=== PATIENT | male | born 1995 | race African-American/Black ===

== ENCOUNTER 2017-10-02 23:40 | Emergency (ER) | payer BC ==
--- NOTE | 2017-10-03 00:58 | ED ---
Throat Pain/Nasal Congestion - HPI Summary HPI Summary: 22M presents with sore throat today. He admits to a headache. He is a type 1 DM and his sugars have been normal. He denies any nausea or vomiting. He denies any diarrhea. He denies any fever. He admits to cough and sinus congestion. He admits to dizziness. He denies any chest pain or SOb. He denies any abdominal pain. He has been able to drink as normal but appetite has been decreased. He has not taken anything for pain. there is mold in his house. - History of Current Complaint Chief Complaint: EDThroatPain Time Seen by Provider: 10/03/17 00:26 - Allergies/Home Medications Allergies/Adverse Reactions: Allergies Allergy/AdvReac Type Severity Reaction Status Date / Time No Known Allergies Allergy Verified 10/02/17 23:58 PMH/Surg Hx/FS Hx/Imm Hx Endocrine/Hematology History: Reports: Hx Diabetes Cardiovascular History: Denies: Hx Hypertension - Immunization History Date of Tetanus Vaccine: utd Date of Influenza Vaccine: utd Infectious Disease History: No Infectious Disease History: Denies: Traveled Outside the [place] in Last 30 Days - Family History Known Family History: Positive: Diabetes - Social History Alcohol Use: None Substance Use Type: Reports: None Smoking Status (MU): Never Smoked Tobacco Review of Systems Negative: Fever Positive: Sore Throat, Nasal Discharge Negative: Chest Pain Positive: Cough. Negative: Shortness Of Breath All Other Systems Reviewed And Are Negative: Yes Physical Exam Triage Information Reviewed: Yes Vital Signs On Initial Exam: Initial Vitals Temp Pulse Resp BP Pulse Ox 98.8 F 78 18 115/67 100 10/02/17 23:56 10/02/17 23:56 10/02/17 23:56 10/02/17 23:56 10/02/17 23:56 Vital Signs Reviewed: Yes Appearance: Positive: Well-Appearing Skin: Positive: Warm, Dry Head/Face: Positive: Normal Head/Face Inspection Eyes: Positive: Normal, EOMI, JOLYNN, Conjunctiva Clear ENT: Positive: Normal ENT inspection, Pharyngeal erythema, TMs normal, Uvula midline, Other - soft palate symmetric. Negative: Tonsillar swelling, Tonsillar exudate, Trismus, Muffled voice Neck: Positive: Supple, Nontender, No Lymphadenopathy Respiratory/Lung Sounds: Positive: Clear to Auscultation, Breath Sounds Present Cardiovascular: Positive: Normal, RRR Abdomen Description: Positive: Nontender, Soft Bowel Sounds: Positive: Present Musculoskeletal: Positive: Normal Neurological: Positive: Normal Psychiatric: Positive: Normal - [place]am Coma Scale Coma Scale Total: 15 Diagnostics - Vital Signs Vital Signs Temp Pulse Resp BP Pulse Ox 10/02/17 23:56 98.8 F 78 18 115/67 100 - Laboratory Lab Statement: Any lab studies that have been ordered have been reviewed, and results considered in the medical decision making process. EENT Course/Dx - Course Course Of Treatment: 22M presents with sore throat today. He admits to a headache. He is a type 1 DM and his sugars have been normal. He denies any nausea or vomiting. He denies any diarrhea. He denies any fever. He admits to cough and sinus congestion. He admits to dizziness. He denies any chest pain or SOb. He denies any abdominal pain. He has been able to drink as normal but appetite has been decreased. He has not taken anything for pain. there is mold in his house. on exam lungs CTA. pharynx red, soft palate symmetric, uvula midline. flu, mono, and strep neg. will treat with magic mouth wash for pain. patient understand and agrees with plan. - Differential Diagnoses Differential Diagnoses: Pharyngitis, Tonsilitis, URI/Bronchitis - Diagnoses Provider Diagnoses: Upper respiratory infection Discharge - Discharge Plan Condition: Good Disposition: HOME Patient Education Materials: Upper Respiratory Infection (ED) Referrals: Marquez Cortez MD [Primary Care Provider] - Additional Instructions: Magic mouthwash 5ml swish and spit can use 4x a day Take Tylenol or ibuprofen for pain every 6 hours Use saline spray in nose as much as needed Use humidifier in room or can use warm water in bowls Can gargle salt water Can use cough drops or products such as cloraseptic spray Follow up with primary within 5 days Return to ED if develop fever does not respond to Tylenol or ibuprofen, inability to swallow, or difficulty breathing or any new or worsening symptoms
[2017-10-03 01:54] VITALS: BP 106/49
== END 2017-10-03 01:55 | disposition home or self-care (01) ==
LOC: ED 23:40
DX: J06.9 Acute upper respiratory infection, unspecified (principal)
CPT/HCPCS: 36415; 86308; 87502; 87651; 99282

== ENCOUNTER 2018-12-14 14:18 | Inpatient (IN) | payer BC, OTHER ==
[2018-12-14] MEDS ORDERED: Nicotine Inhaler* 10 MG AMP INH PRN (14:21)
--- NOTE | 2018-12-14 14:31 | ED ---
Psychiatric Complaint - HPI Summary HPI Summary: This patient is a 23 year old M presenting to ED from [facility] with a chief complaint of SI and depression since all of last month. Has no plan currently. He has had prior SI attempts with thoughts to jump off a building. The patient rates the pain 0/10 in severity. Symptoms aggravated by nothing. Symptoms alleviated by nothing. Patient reports insomnia as well. Patient denies CP and SOB. Patient is not on medications and has been eating and drinking okay. Patient has not been admitted here before. - History Of Current Complaint Chief Complaint: EDMentalHealth Time Seen by Provider: 12/14/18 14:18 Hx Obtained From: Patient Onset/Duration: Sudden Onset, Lasting Weeks, Still Present Timing: Constant Severity Currently: None Character: Depressed Aggravating Factor(s): Nothing Alleviating Factor(s): Nothing Related History: Positive For: Prior Psychiatric Issues Has Suicidal: Reports: Thoughts. Denies: With A Plan Has Homicidal: Denies: Thoughts - Allergies/Home Medications Allergies/Adverse Reactions: Allergies Allergy/AdvReac Type Severity Reaction Status Date / Time No Known Allergies Allergy Verified 10/02/17 23:58 Home Medications: Home Medications NK [No Home Medications Reported] 12/14/18 [History Confirmed 12/14/18] PMH/Surg Hx/FS Hx/Imm Hx Endocrine/Hematology History: Reports: Hx Diabetes Cardiovascular History: Denies: Hx Hypertension Psychiatric History: Reports: Hx Depression, Hx Suicide Attempt - Immunization History Date of Tetanus Vaccine: utd Date of Influenza Vaccine: utd Infectious Disease History: No Infectious Disease History: Denies: Traveled Outside the [place] in Last 30 Days - Family History Known Family History: Positive: Diabetes - Social History Alcohol Use: None Substance Use Type: Reports: None Smoking Status (MU): Never Smoked Tobacco Review of Systems Negative: Fever, Chills Negative: Erythema Negative: Sore Throat Negative: Chest Pain Negative: Shortness Of Breath, Cough Negative: Abdominal Pain, Vomiting, Nausea Negative: dysuria, hematuria Negative: Myalgia, Edema Negative: Rash Neurological: Other - denies dizziness Positive: Depressed, Other - SI with no plan All Other Systems Reviewed And Are Negative: Yes Physical Exam - Summary Physical Exam Summary: Constitutional: Well-developed, Well-nourished, Alert. (-) Distressed Skin: Warm, Dry HENT: Normocephalic; Atraumatic Eyes: Conjunctiva normal Neck: Musculoskeletal ROM normal neck. (-) JVD, (-) Stridor, (-) Tracheal deviation Cardio: Rhythm regular, rate normal, Heart sounds normal; Intact distal pulses; The pedal pulses are 2+ and symmetric. Radial pulses are 2+ and symmetric. (-) Murmur Pulmonary/Chest wall: Effort normal. (-) Respiratory distress, (-) Wheezes, (-) Rales Abd: Soft, (-) epigastric tenderness, (-) Distension, (-) Guarding, (-) Rebound Musculoskeletal: (-) Edema Lymph: (-) Cervical adenopathy Neuro: Alert, Oriented x3 Psych: Mood and affect Normal Triage Information Reviewed: Yes Vital Signs On Initial Exam: Initial Vitals Temp Pulse Resp BP Pulse Ox 98.2 F 78 16 148/89 99 12/14/18 14:19 12/14/18 14:19 12/14/18 14:19 12/14/18 14:19 12/14/18 14:19 Vital Signs Reviewed: Yes Diagnostics - Vital Signs Vital Signs Temp Pulse Resp BP Pulse Ox 12/14/18 14:19 98.2 F 78 16 148/89 99 - Laboratory Result Diagrams: 12/14/18 15:01 12/14/18 15:01 Lab Statement: Any lab studies that have been ordered have been reviewed, and results considered in the medical decision making process. Course/Dx - Course Assessment/Plan: This patient is a 23 year old M presenting to ED from [facility] with a chief complaint of SI and depression since all of last month. Patient is clear for MHE at 1420. In the ED course, the patient was given a nicotine inhaler. MHE done by Dr. Villafuerte. This patient will be signed out to Dr. Eaton upon shift change, pending transfer to another psychiatric facility with dx of depressive disorder. - Differential Dx/Clinical Impression Differential Diagnosis/HQI/PQRI: Positive: Other - depressive disorder Provider Diagnosis: Depressive disorder Discharge - Sign-Out/Discharge Documenting (check all that apply): Sign-Out Patient - transfer to another psychiatric facility Signing out patient TO: Allen Eaton Patient Received Moderate/Deep Sedation with Procedure: No - Discharge Plan Condition: Stable Disposition: PSYCHIATRIC FACILITY-OTHER Referrals: Marquez Cortez MD [Medical Doctor] - - Attestation Statements Document Initiated by Scribe: Yes Documenting Scribe: Arsh Shipley Provider For Whom Scribe is Documenting (Include Credential): Desean Russ MD Scribe Attestation: IArsh, scribed for Desean Russ MD on 12/14/18 at 2150. Status of Scribe Document: Ready
[2018-12-14 14:59] LABS: Urine Appearance Clear; Urine Bilirubin Negative (Negative); Urine Blood Negative (Negative); Urine Color Yellow; Urine Glucose 3+(>=500 mg/dL) (Negative); Urine Ketones Negative (Negative); Urine Nitrite Negative (Negative); Urine Protein Negative (Negative); Urine Specific Gravity 1.023 (1.010-1.030); Urine Urobilinogen Negative (Negative)
[2018-12-14 15:07] LABS: ABS Basophils 0 10^3/ul (0-0.2); ABS Eosinophils 0 10^3/ul (0-0.6); ABS Lymphocytes 1.6 10^3/ul (1.0-4.8); ABS Monocytes 0.7 10^3/ul (0-0.8); ABS Nucleated RBC 0 10^3/ul; Eosinophil % 0.5 %; Hematocrit 41 % (36-46); Hemoglobin 13.8 g/dL (14.0-18.0); Lymphocyte % 30.3 %; Mean Corpuscular HGB Conc 33 g/dL (31-36); Mean Corpuscular Hemoglobin 29 pg (27-31); Mean Corpuscular Volume 88 fL (80-94); Mean Platelet Volume 7.2 fL (7.4-10.4); Nucleated Red Blood Cells % 0.1; Platelet Count 239 10^3/uL (150-450); Red Blood Count 4.71 10^6 /uL (4.18-5.48); Red Cell Distribution Width 13 % (10.5-15); White Blood Count 5.4 10^3/uL (3.5-10.8)
[2018-12-14 15:12] LABS: Barbiturates Urine Screen None Detected (None Detect); Benzodiazepine Urine Screen None Detected (None Detect); Urine Cannabinoids Screen Presumptive Positive (None Detect)
[2018-12-14 15:24] LABS: ALT 42 U/L (7-52); AST 32 U/L (13-39); Albumin 3.9 g/dL (3.2-5.2); Albumin/Globulin Ratio 1.3 (1-3); Alkaline Phosphatase 74 U/L (34-104); Anion Gap 5 mmol/L (2-11); BUN/Creatinine Ratio 8.9 (8-20); Blood Urea Nitrogen 9 mg/dL (6-24); CO2 Carbon Dioxide 29 mmol/L (22-32); Calcium 9.2 mg/dL (8.6-10.3); Chloride 101 mmol/L (101-111); EGFR African American 110.8 (>60); EGFR Non-African American 91.5 (>60); Globulin 2.9 g/dL (2-4); Glucose 257 mg/dL (70-100); Potassium 4.2 mmol/L (3.5-5.0); Sodium 135 mmol/L (135-145); Total Protein 6.8 g/dL (6.4-8.9)
[2018-12-14 16:39] LABS: TSH (Thyroid Stimulating Horm) 1.58 mcIU/mL (0.34-5.60)
[2018-12-14 16:44] LABS: Acetaminophen < 15 mcg/mL; Alcohol < 10 mg/dL (<10); Salicylate < 2.50 mg/dL (<30)
--- NOTE | 2018-12-14 22:20 | ED ---
Progress - Progress Note Progress Note: The pt is a signout from Dr. Russ to Dr. Eaton pending transfer to a different psychiatric facility. - Consult/PCP Time Called: 14:45 Course/Dx - Course Course Of Treatment: The pt is a signout from Dr. Russ to Dr. Eaton pending transfer to a different psychiatric facility. The pt will be signed out to Dr. Baker pending transfer to different psychiatric facility. - Diagnoses Provider Diagnoses: Depressive disorder Discharge - Sign-Out/Discharge Documenting (check all that apply): Sign-Out Patient, Receiving Sign-Out Signing out patient TO: Arya Baker Receiving patient FROM: Desean Russ - Discharge Plan Condition: Stable Disposition: PSYCHIATRIC FACILITY-OTHER Referrals: Marquez Cortez MD [Medical Doctor] - - Attestation Statements Document Initiated by Scribe: Yes Documenting Scribe: Kimberly Katz Provider For Whom Julio Cibnicolás is Documenting (Include Credential): Allen Eaton MD. Scribe Attestation: IKimberly, scribed for Allen Eaton MD. on 12/15/18 at 0647. Status of Scribe Document: Ready
--- NOTE | 2018-12-15 08:05 | ED ---
Progress - Progress Note Progress Note: This pt was signed out by Dr. Eaton at shift change, pending transfer to another psychiatric facility. Pt was pending to be transferred to another facility, [place] [facility] reports pt will be admitted on a voluntary status to [facility] with dx major depression. Course/Dx - Diagnoses Provider Diagnoses: Major depression Discharge - Sign-Out/Discharge Documenting (check all that apply): Patient Departure - Admit to [facility], Receiving Sign-Out Receiving patient FROM: Allen Eaton Patient Received Moderate/Deep Sedation with Procedure: No - Discharge Plan Condition: Stable Disposition[place] [place]illing Disposition and Condition Condition: STABLE Disposition: [place] [facility] [place] Attestation Statements Document Initiated by Scribe: Yes Documenting Scribe: Jennie Calvillo Provider For Whom Julio Cibe is Documenting (Include Credential): Arya Baker MD Scribe Attestation: Jennie Lee scribed for Arya Baker MD on 12/15/18 at 1825. Scribe Documentation Reviewed: Yes Provider Attestation: The documentation as recorded by the scribeJennie accurately reflects the service I personally performed and the decisions made by me, Arya Baker MD Status of Scribe Document: Viewed
--- NOTE | 2018-12-15 08:40 | PN ---
ED Flex Patient Progress Note Date of Service: 12/15/18 Subjective: ED day #1 for this 23 y.o. single, AA male with a history of previous psychiatric admission in [facility] who is sent via from [facility] due to SI. Patient depressed with AH. Requesting admission. Objective: young AA male in scrubs; depressed with AH and SI Assessment: Major Depression Plan: Admit to psych on 05.28 voluntary status pending bed availability. Vital Signs Temp Pulse Resp BP Pulse Ox 0 F 0 0 0/0 0 12/14/18 18:43 12/14/18 18:43 12/14/18 18:43 12/14/18 18:43 12/14/18 18:43 Lab Results - Entire Visit 12/14/18 12/14/18 12/14/18 15:01 15:01 14:45 WBC 5.4 RBC 4.71 Hgb 13.8 L Hct 41 MCV 88 MCH 29 MCHC 33 RDW 13 Plt Count 239 MPV 7.2 L Neut % (Auto) 55.4 Lymph % (Auto) 30.3 Wilson % (Auto) 13.3 Eos % (Auto) 0.5 Baso % (Auto) 0.5 Absolute Neuts (auto) 3.0 Absolute Lymphs (auto) 1.6 Absolute Monos (auto) 0.7 Absolute Eos (auto) 0 Absolute Basos (auto) 0 Absolute Nucleated RBC 0 Nucleated RBC % 0.1 Sodium 135 Potassium 4.2 Chloride 101 Carbon Dioxide 29 Anion Gap 5 BUN 9 Creatinine 1.01 Est GFR ( Amer) 110.8 Est GFR (Non-Af Amer) 91.5 BUN/Creatinine Ratio 8.9 Glucose 257 H Calcium 9.2 Total Bilirubin 0.40 AST 32 ALT 42 Alkaline Phosphatase 74 Total Protein 6.8 Albumin 3.9 Globulin 2.9 Albumin/Globulin Ratio 1.3 TSH 1.58 Urine Color Urine Appearance Urine pH Ur Specific Wellington Urine Protein Urine Ketones Urine Blood Urine Nitrate Urine Bilirubin Urine Urobilinogen Ur Leukocyte Esterase Urine Glucose Salicylates < 2.50 Urine Opiates Screen None detected Acetaminophen < 15 Ur Barbiturates Screen None detected Ur Phencyclidine Scrn None detected Ur Amphetamines Screen None detected U Benzodiazepines Scrn None detected Urine Cocaine Screen None detected U Cannabinoids Screen Presumptive positive A Serum Alcohol < 10 12/14/18 14:45 WBC RBC Hgb Hct MCV MCH MCHC RDW Plt Count MPV Neut % (Auto) Lymph % (Auto) Wilson % (Auto) Eos % (Auto) Baso % (Auto) Absolute Neuts (auto) Absolute Lymphs (auto) Absolute Monos (auto) Absolute Eos (auto) Absolute Basos (auto) Absolute Nucleated RBC Nucleated RBC % Sodium Potassium Chloride Carbon Dioxide Anion Gap BUN Creatinine Est GFR ( Amer) Est GFR (Non-Af Amer) BUN/Creatinine Ratio Glucose Calcium Total Bilirubin AST ALT Alkaline Phosphatase Total Protein Albumin Globulin Albumin/Globulin Ratio TSH Urine Color Yellow Urine Appearance Clear Urine pH 6.0 Ur Specific Wellington 1.023 Urine Protein Negative Urine Ketones Negative Urine Blood Negative Urine Nitrate Negative Urine Bilirubin Negative Urine Urobilinogen Negative Ur Leukocyte Esterase Negative Urine Glucose 3+(>=500 mg/dl) A Salicylates Urine Opiates Screen Acetaminophen Ur Barbiturates Screen Ur Phencyclidine Scrn Ur Amphetamines Screen U Benzodiazepines Scrn Urine Cocaine Screen U Cannabinoids Screen Serum Alcohol
[2018-12-15] MEDS ORDERED: Al Hydrox/Mg Hydrox/Simet LIQ* 30 ML UDC PO PRN (11:14)
[2018-12-15] MEDS ORDERED: Acetaminophen TAB* 325 MG PO PRN (11:14)
[2018-12-15] MEDS ORDERED: hydrOXYzine HCL TAB* 50 MG PO PRN (11:17)
[2018-12-16 08:41] LABS: HDL Cholesterol 45.8 mg/dL
[2018-12-16] MEDS ORDERED: Nicotine GUM* 2 MG PO PRN (10:39)
[2018-12-16] MEDS: FLUoxetine CAP* 20 MG PO SCH (11:02)
[2018-12-16] MEDS: Nicotine PATCH 7 MG/24 HR* PATCH TRANSDERM SCH (11:02)
[2018-12-16] MEDS ORDERED: Dextrose 50% Syringe 50 ML* 25 GM/50 ML SYRINGE IV PUSH PRN ×2 (12:17→22:23)
--- NOTE | 2018-12-16 12:24 | CONSULT ---
Subjective Date of Service: 12/16/18 Interval History: This is a 23 year old AA male currently voluntarily hospitalized on BSU for major depression and suicidal ideation that was found to have elevated blood sugar. Patient reports a diagnosis of diabetes from age [age] when he was insulin dependent. He was transitioned to oral agents thereafter but had adherence issues secondary to side effects. Patient states he did not "feel right" or agents and cannot recall what meds he was on at that time and subsequently stopped taking any meds. Patient states he has not had a PCP in several years and was going to his first visit with [facility] when he admitted to being suicidal and was [facility], which then sent him to the ER for crisis evaluation. HgB A1C is 12.2 with a fasting sugar of 257 yesterday. We are being consulted for diabetes management while hospitalized. Family History: Findings - mother with DM, father hx unknown Social History: Findings - smokes 1/4 PPD x 1 year, rare ETOH use, cannibis use recreationally Past Medical History: Findings - IDDM, no surgeries, NKDA, no daily meds Review of Systems - Measurements Intake and Output: Intake and Output Last 24 Hours 12/14/18 12/15/18 12/16/18 12/17/18 06:59 06:59 06:59 06:59 Weight 120 lb 120 lb - Review of Systems Constitutional Symptoms: Positive: Weight Loss Negative: Weight Gain, Weakness, Fatigue, Fever, Night Sweats, Unexplained Falls, Other Dermatology: Negative: Normal, Rash, Skin Lesions, Cancer, Skin Lumps, Other HEENT: Negative: Normal, Change in Hearing, Vertigo, Dental Problems, Tinnitus, Sinus Problem, Other Eyes: Negative: Normal, Change in Vision, Double Vision, Eye Pain, Glaucoma, Cataract, Contacts or Glasses, Other Thyroid: Negative: Normal, Goiter, Thyroid Nodule, Cold Intolerance, Heat Intolerance , Sweatiness, Tremor, Frequent Defecation, Constipation, Palpitations, Primary Hypothyroidism, Primary Hyperthyroidism, Weight Loss, Weight Gain, Change in Skin/Hair, Change in Menstruation, Radiation Exposure, Other Pulmonary: Negative: Normal, Cough, Sputum, Hemoptysis, Wheezing, Respiratory Distress, Shortness of Breath, COPD, Asthma, Exercise Intolerance, Home Oxygen, Other Cardiology: Negative: Normal, Chest Pain, Shortness of Breath, Palpitations, Swelling of Ankles, Peripheral Vascular Dis, Edema, Faintness, Syncope, Claudication, Proximal NocturnalDyspnea, Orthopnoea, Other Gastroenterology: Negative: Normal, Abdominal Pain, Nausea, Vomiting, Anorexia, Indigestion, Difficulty Swallowing, Heartburn, Constipation, Diarrhea, Blood in Stools, Change in Bowel Habits, Haematemesis, Melena, Other Genital - Urinary: Negative: Normal, Dysuria, Hematuria, Polyuria, Nocturia, Other Musculoskeletal: Negative: Joint Pain, Joint Stiffness, Arthritis, Osteoporosis, Low Back Pain , Sciatica, Joint Deformities, Kyphoscoliosis, Other Endocrinology: Positive: Family Hx Endocrine Disorders, Diabetes Mellitus, Hyperglycemia Negative: Normal, Thyroid Problems, Adrenal Problems, Gonadal Problems, Obesity, Hx Hypoglycemia, Diabetic Foot Ulcers, Calluses, Hirsutism, Menstral Abnormalities, Polydipsia, Polyuria, Gonadal Problems, Gynecomastia, Pituitary disease, Other Hematologic/Lymphatic: Negative: Anemia, Easy Brusing, Hx Leukemia, Hx Lymphoma, Use of Anticoagulant, Use of Antiplatelet Drugs, Other Neurology: Negative: Normal, Headache, Migraines, Change in Vision, Diplopia, Dizziness , Change in Balancing, Change in Coordination, Change in Memory, Change in Speech, Change in Sphincter Function, Change in Walking, Numbness\\Paresthesiae, Unexplained Weakness, Hx of Stroke\\TIA, Hx of Seizures, Other Psychiatry: Positive: Depression, Depressed Mood, Suicidal Ideation Negative: Normal, Anxiety, Adhedonia, Sexual Dysfunction, Weight Change, Guilt Feelings, Tearfulness, Unusual Fatigue, Unusual Anxiety, Hypomania, Eating Disorders, Other Allergic/Immunologic: Negative: Hx Anaphylaxis, Hx Angioedema, Hx Environmental, Hx Seasonal, Athsma, Hx HIV, Immunocompromise, Swollen Glands LymphNodes, Other Objective Active Medications: Acetaminophen (Tylenol Tab*) 650 mg PO Q4H PRN PRN Reason: for pain; or Temp >101 F Al Hydrox/Mg Hydrox/Simethicone (Maalox Plus*) 30 ml PO Q4H PRN PRN Reason: INDIGESTION Dextrose (D50w Syringe 50 Ml*) 12.5 gm IV PUSH .FOR FS < 60 - SS PRN PRN Reason: FS < 60 Fluoxetine HCl (Prozac Cap*) 20 mg PO DAILY CHAKA Last Admin: 12/16/18 11:02 Dose: 20 mg Hydroxyzine HCl (Atarax Tab*) 50 mg PO Q6H PRN PRN Reason: ANXIETY Insulin Glargine (Lantus(*)) 11 units SUBCUT BEDTIME CHAKA Insulin Human Lispro (Humalog*) 0 units SUBCUT ACHS [facility]; Protocol Nicotine (Nicotine Inhaler*) 10 mg INH Q2H PRN PRN Reason: CRAVING Nicotine (Nicotine Patch 7 Mg/24 Hr*) 1 patch TRANSDERM DAILY [facility] Last Admin: 12/16/18 11:02 Dose: Not Given Nicotine Polacrilex (Nicotine Gum*) 2 mg PO Q2H PRN PRN Reason: CRAVING Pharmacy Profile Note (Nicotine Patch Removal Note*) 1 note FOLLOW UP 2100 [facility] Vital Signs - 8 hr 12/16/18 12/16/18 07:42 11:17 Temperature 97.6 F Pulse Rate 82 Respiratory 16 16 Rate Blood Pressure 110/59 (mmHg) O2 Sat by Pulse 99 Oximetry Oxygen Devices in Use Now: None Appearance: alert, well appearing, NAD Eyes: No Scleral Icterus, PERRLA Ears/Nose/Mouth/Throat: NL Teeth, Lips, Gums Neck: NL Appearance and Movements; NL JVP, Trachea Midline Respiratory: Symmetrical Chest Expansion and Respiratory Effort, Clear to Auscultation Cardiovascular: NL Sounds; No Murmurs; No JVD, RRR Abdominal: NL Sounds; No Tenderness; No Distention, No Hepatosplenomegaly Extremities: No Edema Skin: No Rash or Ulcers Neurological: Alert and Oriented x 3, NL Gait Nutrition: Taking PO's Result Diagrams: 12/14/18 15:01 12/14/18 15:01 EKG Data: RSR, no acute ST segment changes Assessment/Plan - Billing Assessment: 1. Hyperglycemia, hx of IDDM - A1C = 12.2 with self-reported non-adherence to medications in the last few years - Will initiate lantus 0.2units/kg at bedtime (11units Q24h) and lispro SS ACHS - Change to CC diet with limit 2 carb servings per meal - Nutrition Consult - Will reach out to Dr. Leonard from Endocrine to establish relationship with patient prior to discharge, as patient will need close outpatient follow up 2. MDD/SI - POC as per psychiatric team VTE PPX: - Ambulatory Diet: - Consistent carb Code Status: - Full code Admission Status and Rationale: - Medically stable to remain on BSU while initiating diabetic treatment Thank you for the courtesy of this consult. Will continue to follow the patient along with you.
[2018-12-16] MEDS: Insulin LISPRO* 1 UNITS UNIT SUBCUT SCH ×3 (13:14→22:37)
--- NOTE | 2018-12-16 16:21 | PN ---
BSU: Group Therapy Note - Service Type Service Type: [id number] Group Psychotherapy - Medication Education Group: Patient attended group and presented with flat affect that did not vary with discussion. Although responsive to direct prompts to respond to questions, patient did not engage in spontaneous conversation.
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
[2018-12-16] MEDS ORDERED: Insulin GLARGINE(*) 1 UNITS UNIT SUBCUT SCH (21:00)
[2018-12-16 22:00] VITALS: BP 125/66
[2018-12-16] MEDS ORDERED: Insulin LISPRO* 1 UNITS UNIT SUBCUT ONE ×2 (22:23)
--- NOTE | 2018-12-16 22:40 | CONSULT ---
Consult Consult: [facility] Inpatient Consult Note Date of Consult: 12/16/18 Reason for Consult: diabetes Reason for Admission: suicidality ASSESSMENT: 23 yo M with presumed type 1 diabetes since age 16, but reportedly off insulin since age 18, now admitted for suicidal ideation and A1c 12.2%. 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 His ability to maintain A1c <7.5% without use of insulin is remarkable , raising the possibility of other forms of diabetes such as pancreatic or monogenetic diabetes. His insulin requirement is approximately 0.5 units/kg/day = 24 units/day, as below. PLAN: - check C-peptide and GAD65 antibodies - increase Lantus to 12 units daily - start Humalog 4 units with meals - continue Humalog sliding scale - follow-up with [facility] endocrinology and diabetes in 2 weeks SUBJECTIVE: History of Present Illness: 23 yo M with presumed diagnosis of type 1 diabetes, now admitted for suicidal ideation. He reports a long history depression and has been seen at [facility] recently, but presented to new PCP with elevated PHQ9 and suicidality without plan. He was referred to [facility] for voluntary admission. He was diagnosed with diabetes at age 16 after presenting with hyperglycemia and , presumably, DKA. He has had no admission since then. He was on intensive insulin therapy for 2 years after diagnosis, but then discontinued insulin entirely when he started college at age 18. He has also used oral agents at various times over the past 5 years. He was previously followed at [facility] and was able to achieve A1c <7.5% without insulin as recently as 2018. Past Medical History: 1. T1DM, A1c 7.1% in 2018 2. Depression 3. Tobacco use disorder Medications Prior to Admission: NK [No Home Medications Reported] 12/14/18 [History Confirmed 12/14/18] Inpatient Medications: Acetaminophen (Tylenol Tab*) 650 mg PO Q4H PRN PRN Reason: for pain; or Temp >101 F Al Hydrox/Mg Hydrox/Simethicone (Maalox Plus*) 30 ml PO Q4H PRN PRN Reason: INDIGESTION Dextrose (D50w Syringe 50 Ml*) 12.5 gm IV PUSH .FOR FS < 60 - SS PRN PRN Reason: FS < 60 Fluoxetine HCl (Prozac Cap*) 20 mg PO DAILY [facility] Last Admin: 12/16/18 11:02 Dose: 20 mg Hydroxyzine HCl (Atarax Tab*) 50 mg PO Q6H PRN PRN Reason: ANXIETY Insulin Glargine (Lantus(*)) 11 units SUBCUT BEDTIME [facility] Last Admin: 12/16/18 21:00 Dose: 11 units Insulin Human Lispro (Humalog*) 0 units SUBCUT ACHS [facility]; Protocol Last Admin: 12/16/18 16:47 Dose: 1 units Insulin Human Lispro (Humalog*) 10 units SUBCUT ONCE ONE Stop: 12/16/18 22:24 Last Admin: 12/16/18 22:33 Dose: 10 units Nicotine (Nicotine Inhaler*) 10 mg INH Q2H PRN PRN Reason: CRAVING Nicotine (Nicotine Patch 7 Mg/24 Hr*) 1 patch TRANSDERM DAILY [facility] Last Admin: 12/16/18 11:02 Dose: Not Given Nicotine Polacrilex (Nicotine Gum*) 2 mg PO Q2H PRN PRN Reason: CRAVING Pharmacy Profile Note (Nicotine Patch Removal Note*) 1 note FOLLOW UP 2100 [facility] Allergies/Intolerances: NKDA Social History: Tobacco and marijuana use. Denies significant alcohol. Estranged from family. Lives with partner. Family History: Both parents with diabetes. Review of Systems: As above. No recent illnesses. OBJECTIVE: Temp Pulse Resp BP Pulse Ox 98.8 F 67 16 125/66 100 12/16/18 21:59 12/16/18 21:59 12/16/18 21:59 12/16/18 21:59 12/16/18 21:59 General: alert, pleasant, oriented, no distress ENT: neck supple, no thyromegaly, no bruit is heard Chest: CTAB, no wheezing or crackles CV: RRR, no murmur Abdomen: soft, non-tender Extremities: no edema, distal pulses intact Skin: warm, dry, no rash Neuro: grossly intact motor/sensory in extremities Psych: restricted affect, pleasant Labs: WBC 5.4 10^3/uL (3.5-10.8) 12/14/18 15:01 RBC 4.71 10^6 /uL (4.18-5.48) 12/14/18 15:01 Hgb 13.8 g/dL (14.0-18.0) L 12/14/18 15:01 Hct 41 % (36-46) 12/14/18 15:01 MCV 88 fL (80-94) 12/14/18 15:01 MCH 29 pg (27-31) 12/14/18 15:01 MCHC 33 g/dL (31-36) 12/14/18 15:01 RDW 13 % (10.5-15) 12/14/18 15:01 Plt Count 239 10^3/uL (150-450) 12/14/18 15:01 MPV 7.2 fL (7.4-10.4) L 12/14/18 15:01 Neut % (Auto) 55.4 % 12/14/18 15:01 Lymph % (Auto) 30.3 % 12/14/18 15:01 [place] % (Auto) 13.3 % 12/14/18 15:01 Eos % (Auto) 0.5 % 12/14/18 15:01 Baso % (Auto) 0.5 % 12/14/18 15:01 Absolute Neuts (auto) 3.0 10^3/ul (1.5-7.7) 12/14/18 15:01 Absolute Lymphs (auto) 1.6 10^3/ul (1.0-4.8) 12/14/18 15:01 Absolute Monos (auto) 0.7 10^3/ul (0-0.8) 12/14/18 15:01 Absolute Eos (auto) 0 10^3/ul (0-0.6) 12/14/18 15:01 Absolute Basos (auto) 0 10^3/ul (0-0.2) 12/14/18 15:01 Absolute Nucleated RBC 0 10^3/ul 12/14/18 15:01 Nucleated RBC % 0.1 12/14/18 15:01 Sodium 135 mmol/L (135-145) 12/14/18 15:01 Potassium 4.2 mmol/L (3.5-5.0) 12/14/18 15:01 Chloride 101 mmol/L (101-111) 12/14/18 15:01 Carbon Dioxide 29 mmol/L (22-32) 12/14/18 15:01 Anion Gap 5 mmol/L (2-11) 12/14/18 15:01 BUN 9 mg/dL (6-24) 12/14/18 15:01 Creatinine 1.01 mg/dL (0.67-1.17) 12/14/18 15:01 Est GFR ( Amer) 110.8 (>60) 12/14/18 15:01 Est GFR (Non-Af Amer) 91.5 (>60) 12/14/18 15:01 BUN/Creatinine Ratio 8.9 (8-20) 12/14/18 15:01 Glucose 257 mg/dL (70-100) H 12/14/18 15:01 POC Glucose (mg/dL) > 444 mg/dL (70-100) H* 12/16/18 21:05 Glucose Meter Confirm 430 mg/dL (70-100) H 12/16/18 21:19 Hemoglobin A1c 12.2 % (4.0-5.6) H 12/16/18 08:02 Calcium 9.2 mg/dL (8.6-10.3) 12/14/18 15:01 Total Bilirubin 0.40 mg/dL (0.2-1.0) 12/14/18 15:01 AST 32 U/L (13-39) 12/14/18 15:01 ALT 42 U/L (7-52) 12/14/18 15:01 Alkaline Phosphatase 74 U/L (34-104) 12/14/18 15:01 Total Protein 6.8 g/dL (6.4-8.9) 12/14/18 15:01 Albumin 3.9 g/dL (3.2-5.2) 12/14/18 15:01 Globulin 2.9 g/dL (2-4) 12/14/18 15:01 Albumin/Globulin Ratio 1.3 (1-3) 12/14/18 15:01 Triglycerides 144 mg/dL 12/16/18 08:02 Cholesterol 169 mg/dL 12/16/18 08:02 LDL Cholesterol 94 mg/dL 12/16/18 08:02 HDL Cholesterol 45.8 mg/dL 12/16/18 08:02 TSH 1.58 mcIU/mL (0.34-5.60) 12/14/18 15:01 Urine Color Yellow 12/14/18 14:45 Urine Appearance Clear 12/14/18 14:45 Urine pH 6.0 (5-9) 12/14/18 14:45 Ur Specific [place] 1.023 (1.010-1.030) 12/14/18 14:45 Urine Protein Negative (Negative) 12/14/18 14:45 Urine Ketones Negative (Negative) 12/14/18 14:45 Urine Blood Negative (Negative) 12/14/18 14:45 Urine Nitrate Negative (Negative) 12/14/18 14:45 Urine Bilirubin Negative (Negative) 12/14/18 14:45 Urine Urobilinogen Negative (Negative) 12/14/18 14:45 Ur Leukocyte Esterase Negative (Negative) 12/14/18 14:45 Urine Glucose 3+(>=500 mg/dl) (Negative) A 12/14/18 14:45 Salicylates < 2.50 mg/dL (<30) 12/14/18 15:01 Urine Opiates Screen None detected (None Detect) 12/14/18 14:45 Acetaminophen < 15 mcg/mL 12/14/18 15:01 Ur Barbiturates Screen None detected (None Detect) 12/14/18 14:45 Ur Phencyclidine Scrn None detected (None Detect) 12/14/18 14:45 Ur Amphetamines Screen None detected (None Detect) 12/14/18 14:45 U Benzodiazepines Scrn None detected (None Detect) 12/14/18 14:45 Urine Cocaine Screen None detected (None Detect) 12/14/18 14:45 U Cannabinoids Screen Presumptive positive (None Detect) A 12/14/18 14:45 Serum Alcohol < 10 mg/dL (<10) 12/14/18 15:01
[2018-12-16] MEDS: Nicotine Patch Removal NOTE FOLLOW UP SCH (22:47)
[2018-12-17] MEDS: Insulin LISPRO* 1 UNITS UNIT SUBCUT SCH ×4 (08:01→17:00)
[2018-12-17] MEDS: FLUoxetine CAP* 20 MG PO SCH (08:05)
[2018-12-17] MEDS: Nicotine PATCH 7 MG/24 HR* PATCH TRANSDERM SCH (08:05)
--- NOTE | 2018-12-17 11:57 | PN ---
Subjective - Subjective Date of Service: 12/17/18 Service Type: [id number] Hosp care 25 min moderate complexity Subjective: Patient was awake for morning routines, returned to his room and was sleeping upon approach. He was easy to rouse and agreed to meet with lyric writer. He reports his mood is "a little bit better" and denies SI or passive wish. He states that he can hear his "alters" conversing moreso, that they tend to be more quiet during depressive episodes. He endorses seeing them at times and enjoying their presence due to subsiding feelings of loneliness. Patient denies difficulty with new treatments for diabetes, other than "not looking forward to the diet." We discuss correlation of diabetes management and moods. He inquires about side effects of fluoxetine, questions answered. Objective - General Observations Appearance: Neat Stature: Thin Posture: WNL Eye Contact: Average Behavior/Activity: WNL - Interaction Observations Attitude Towards Examiner: Cooperative Stated Mood: Dysphoric - "a little better" Affect: Full Speech Pattern/Tone: Clear, Appropriate, Normal Volume Thought Process: Coherent, Goal Directed Perception: Depersonalization Thought Content: Depressive Hallucination Type: Denies Delusion Type: Denies - Cognitive Function Orientation: A&O x 4 Level of Consciousness: Alert Cognition: WNL Estimated Intelligence: Normal Insight: WNL Judgment Within Normal Limits: Yes Ability to Make Reasonable Decisions: Mildly Impaired - Medication Compliance Cooperative with Inpatient Medication Regimen: Yes - Group Participation Participates in Group Activities: Partial Assessment - Assessment Merits Inpatient Hospitalization: For Immediate Safety, For Stabilization, Diagnosis Determination Inpatient DSM-V Dx: F33.1 Clinical Impression: 23yo black male with current outpatient mental health counseling, who presented to the ED after an appt with therapist due to suicidal ideation and plans. He endorses significant depressive symptoms, along with dissociative episodes. He merits hospitalization for immediate safety and stabilization. Plan - Plan Treatment Plan: Name: CORNELIO SLAUGHTER JR Birthdate: 1995 [id number] continue acute intensive psychiatric treatment. may decrease to q30min and allow staff pass. awaiting MMPI completion. continue fluoxetine. Appreciate consults and hospitalist involvement in diabetes management. Continued Medication Management: Start Medication Medications: Current Medications Acetaminophen (Tylenol Tab*) 650 mg PO Q4H PRN PRN Reason: for pain; or Temp >101 F Al Hydrox/Mg Hydrox/Simethicone (Maalox Plus*) 30 ml PO Q4H PRN PRN Reason: INDIGESTION Dextrose (D50w Syringe 50 Ml*) 12.5 gm IV PUSH .FOR FS < 60 - SS PRN PRN Reason: FS < 60 Fluoxetine HCl (Prozac Cap*) 20 mg PO DAILY [facility] Last Admin: 12/17/18 08:05 Dose: 20 mg Hydroxyzine HCl (Atarax Tab*) 50 mg PO Q6H PRN PRN Reason: ANXIETY Insulin Glargine (Lantus(*)) 11 units SUBCUT BEDTIME [facility] Last Admin: 12/16/18 21:00 Dose: 11 units Insulin Human Lispro (Humalog*) 0 units SUBCUT AC [facility]; Protocol Last Admin: 12/17/18 11:39 Dose: 1 units Nicotine (Nicotine Inhaler*) 10 mg INH Q2H PRN PRN Reason: CRAVING Nicotine (Nicotine Patch 7 Mg/24 Hr*) 1 patch TRANSDERM DAILY [facility] Last Admin: 12/17/18 08:05 Dose: Not Given Nicotine Polacrilex (Nicotine Gum*) 2 mg PO Q2H PRN PRN Reason: CRAVING Pharmacy Profile Note (Nicotine Patch Removal Note*) 1 note FOLLOW UP 2100 [facility] Last Admin: 12/16/18 22:47 Dose: Not Given - Discharge Plan Discharge Plan: Inpatient Hospitalization
[2018-12-17] MEDS ORDERED: Dextrose 50% Syringe 50 ML* 25 GM/50 ML SYRINGE IV PUSH PRN (13:37)
[2018-12-17] MEDS ORDERED: Insulin GLARGINE(*) 1 UNITS UNIT SUBCUT SCH (21:00)
[2018-12-17] MEDS: Nicotine Patch Removal NOTE FOLLOW UP SCH (21:01)
--- NOTE | 2018-12-17 22:53 | PN ---
Subjective Date of Service: 12/17/18 Interval History: Denies chest pain,abdominal pain, fevers, chills, nausea, vomiting, diarrhea, constipation, lightheadedness. Appetite intact. Mood improved and asking about possible discharge. Does not remember who he is establishing with in [facility]. Blood glucose levels improved 120-180s Family History: Findings - mother with DM, father hx unknown Social History: Findings - smokes 1/4 PPD x 1 year, rare ETOH use, cannibis use recreationally Past Medical History: Findings - IDDM, no surgeries, NKDA, no daily meds Objective Active Medications: Acetaminophen (Tylenol Tab*) 650 mg PO Q4H PRN PRN Reason: for pain; or Temp >101 F Al Hydrox/Mg Hydrox/Simethicone (Maalox Plus*) 30 ml PO Q4H PRN PRN Reason: INDIGESTION Dextrose (D50w Syringe 50 Ml*) 12.5 gm IV PUSH .FOR FS < 60 - SS PRN PRN Reason: FS < 60 Fluoxetine HCl (Prozac Cap*) 20 mg PO DAILY [facility] Last Admin: 12/17/18 08:05 Dose: 20 mg Hydroxyzine HCl (Atarax Tab*) 50 mg PO Q6H PRN PRN Reason: ANXIETY Insulin Glargine (Lantus(*)) 12 units SUBCUT BEDTIME [facility] Last Admin: 12/17/18 21:00 Dose: 12 units Insulin Human Lispro (Humalog*) 0 units SUBCUT AC [facility]; Protocol Last Admin: 12/17/18 16:56 Dose: 2 units Insulin Human Lispro (Humalog*) 4 units SUBCUT AC [facility] Last Admin: 12/17/18 17:00 Dose: 4 units Nicotine (Nicotine Inhaler*) 10 mg INH Q2H PRN PRN Reason: CRAVING Nicotine (Nicotine Patch 7 Mg/24 Hr*) 1 patch TRANSDERM DAILY [facility] Last Admin: 12/17/18 08:05 Dose: Not Given Nicotine Polacrilex (Nicotine Gum*) 2 mg PO Q2H PRN PRN Reason: CRAVING Pharmacy Profile Note (Nicotine Patch Removal Note*) 1 note FOLLOW UP 2100 [facility] Last Admin: 12/17/18 21:01 Dose: Not Given Oxygen Devices in Use Now: None Appearance: NAD Eyes: No Scleral Icterus Ears/Nose/Mouth/Throat: NL Teeth, Lips, Gums Neck: NL Appearance and Movements; NL JVP, Trachea Midline Respiratory: Symmetrical Chest Expansion and Respiratory Effort, Clear to Auscultation Cardiovascular: NL Sounds; No Murmurs; No JVD Skin: No Rash or Ulcers Neurological: Alert and Oriented x 3 Nutrition: Taking PO's Result Diagrams: 12/14/18 15:01 12/14/18 15:01 Additional Lab and Data: Laboratory Results - last 24 hr 12/16/18 12/17/18 12/17/18 23:44 07:58 11:35 POC Glucose (mg/dL) 182 H 121 H 171 H EKG Data: RSR, no acute ST segment changes Assess/Plan/Problems-Billing Assessment: 23 year old male PMH DM (initially insulin dependent ages [age]), depression p/ w suicidal ideation. # Hyperglycemia, hx of IDDM - A1C = 12.2 with self-reported non-adherence to medications in the last few years - Appreciate Endocrinology recs. Lantus 12U Q24h, lispro qac with SSI ACHS - f/u GAD65, C-peptide # major depressive disorder with suicidal ideation w/ plan - as per psychiatric team - currently on prozac 20mg #smoker - nicotine patch VTE PPX: - Ambulatory Diet: - Consistent carb Code Status: - Full code Admission Status and Rationale: - Medically stable to remain on BSU - Patient Problems (1) Insulin dependent diabetes mellitus Current Visit: Yes Status: Acute Code(s): E11.9 - TYPE 2 DIABETES MELLITUS WITHOUT COMPLICATIONS; Z79.4 - LONGTERM (CURRENT) USE OF INSULIN SNOMED Code( s): 67684398 (2) Smoker Current Visit: Yes Status: Acute Code(s): F17.200 - NICOTINE DEPENDENCE, UNSPECIFIED, UNCOMPLICATED SNOMED Code(s): 33682558 (3) Depression Current Visit: Yes Status: Acute Code(s): F32.9 - MAJOR DEPRESSIVE DISORDER , SINGLE EPISODE, UNSPECIFIED SNOMED Code(s): 06054362 (4) Suicidal ideation Current Visit: Yes Status: Acute Code(s): R45.851 - SUICIDAL IDEATIONS SNOMED Code(s): 7750578 Status and Disposition: psychiatry inpatient, medicine consulting.
[2018-12-18] MEDS: Insulin LISPRO* 1 UNITS UNIT SUBCUT SCH ×4 (08:24→11:58)
[2018-12-18] MEDS: FLUoxetine CAP* 20 MG PO SCH (08:25)
[2018-12-18] MEDS: Nicotine PATCH 7 MG/24 HR* PATCH TRANSDERM SCH (08:28)
--- NOTE | 2018-12-18 17:51 | PN ---
Subjective Date of Service: 12/18/18 Interval History: Patient is without complaints today. He denies dizziness, nausea, abdominal pain , blurred vision. Patient reports that he previously used insulin pens when he was originally started on insulin over 5 years ago. Family History: Findings - mother with DM, father hx unknown Social History: Findings - smokes 1/4 PPD x 1 year, rare ETOH use, cannibis use recreationally Past Medical History: Findings - IDDM, no surgeries, NKDA, no daily meds Objective Oxygen Devices in Use Now: None Appearance: Young, thin, black male sitting upright in chair in [employer], appearing in NAD, his friend present for visit Eyes: No Scleral Icterus, PERRLA Ears/Nose/Mouth/Throat: Mucous Membranes Moist Neck: NL Appearance and Movements; NL JVP Respiratory: Symmetrical Chest Expansion and Respiratory Effort, Clear to Auscultation Cardiovascular: NL Sounds; No Murmurs; No JVD, RRR Abdominal: - - abdomen soft, nontender, nondistended Extremities: No Edema Skin: No Rash or Ulcers, - - skin is warm, dry, intact Neurological: Alert and Oriented x 3, NL Muscle Strength and Tone Result Diagrams: 12/14/18 15:01 12/14/18 15:01 Additional Lab and Data: Laboratory Results - last 24 hr 12/16/18 12/17/18 12/17/18 23:44 07:58 11:35 POC Glucose (mg/dL) 182 H 121 H 171 H EKG Data: RSR, no acute ST segment changes Assess/Plan/Problems-Billing Assessment: 23 year old male PMH DM (initially insulin dependent ages [age]), depression p/ w suicidal ideation. # Hyperglycemia, hx of IDDM - A1C = 12.2 with self-reported non-adherence to medications in the last few years. - Appreciate Endocrinology recs. Lantus 12U Q24h, lispro qac with [facility] ACHS. Prescriptions provided at discharge for humalog and lantus pens, glucometer, lancets, and test strips. Patient was provided with diabetic education by nursing staff prior to discharge. Patient has follow up appt with Dr. Leonard on 12/29/18. At this time he will f/u GAD65 and C-peptide results. -Dr. Leonard determined pt likely has DM T1. # major depressive disorder with suicidal ideation w/ plan - as per psychiatric team - currently on prozac 20mg #smoker - nicotine patch VTE PPX: - Ambulatory Diet: - Consistent carb Code Status: - Full code Admission Status and Rationale: - BSU intends to discharge patient today and he is medically stable. Status and Disposition: psychiatry inpatient, medicine consulting.
--- NOTE | 2018-12-21 11:46 | DS ---
CC: [facility]; Dr. Leonid Leonard; Dr. Arya Messer* DISCHARGE SUMMARY: DATE OF ADMISSION: 12/15/18 DATE OF DISCHARGE: 12/18/18 SUPERVISING PSYCHIATRIST: Dr. Germain Saez* (dictated by SAMI Booker) . DISCHARGE DIAGNOSES: 1. Major depressive disorder. 2. Dissociative identity disorder. 3. Diabetes mellitus, type 1. CONDITION AT TIME OF DISCHARGE: Improved. The patient is euthymic with bright affect. He denies suicidal ideation or passive wish. He reports improvement in mood. He reports desire to be discharged from the hospital. He has been started on insulin through the hospitalist service and noted to have improved fingerstick blood sugar readings. He has been safe on all checks and in behavioral control. The patient was decreased to 30-minute observation and allowed staff pass. Close friend of his was present for discharge and both men were able to ask questions of this group underwriter for recommendations of continuing care. The patient agreed to resume treatment with outpatient therapist at [facility]. He was also given followup appointments with primary care provider, Dr. Arya Messer, and collections technician, Dr. Leonard. MENTAL STATUS EXAM: Jesse is a 23-year-old black male, who appears stated age. He is thin framed, well-groomed, wearing causal clothing. He is alert and oriented x3. Eye contact is good. Speech is soft and articulate and spontaneous. Mood is euthymic with bright affect. No abnormal psychomotor activity noted. Thought process is goal directed, logical, and coherent. Thought content is negative for SI or passive wish. He denies HI or . The patient denies auditory or visual hallucinations. He denies presence of dissociative identities at this time. Insight and judgment are good. Fund of knowledge is adequate. INSTRUCTIONS GIVEN TO PATIENT: A. Medications: Fluoxetine 20 mg p.o. daily and was electronically prescribed to [facility] pharmacy. The following medications are through hospitalist service: 1. Insulin Lantus 12 units subcu q.h.s. 2. Lispro per sliding scale. B. Diet: Diabetic diet. C: Activity: Ambulation as tolerated. Tobacco cessation was declined by the patient. There are no pending labs or diagnostic studies from Psychiatry. He will resume diabetes monitoring through collections technician. D: Followup care: As stated above, the patient is following with [facility], Dr. Leonard for Endocrinology, and Dr. Messer for primary care. E: Substance use followup: Not applicable. HOSPITAL COURSE: Part A: Reason for admission: The patient presented to the emergency department after an outpatient appointment on 12/14/18 via 9.45 due to increased depression and suicidal ideation with plans. HPI: Jesse is a 23-year-old black male, domiciled, unemployed, who lives with his significant other, Matthieu, and presented to the ED 12/14/18 due to suicidal ideation with plans to jump off a bridge, drink bleach, and/or cut his wrist. The BSU at [facility] was full and efforts were made to transfer him to an accepting facility. In the meantime, a bed opened up on our unit and the patient was admitted on the afternoon of 12/15/18. Upon meeting with his group underwriter , the patient endorsed thoughts of suicide and passive wish, hopelessness , and helplessness. He endorses thoughts that no one would care if he were . He endorses hypersomnia without feeling rested upon waking. He reports increased appetite specifically for comfort foods. He endorses anhedonia and increased isolation. The patient reports feeling of anxiety, states that he feels like friends are not really his friends, but they are waiting for him to fail or loose it. The patient reports a history of nightmares. He denies flashbacks or hypervigilance. Towards the end of our conversation, he reports a history of alter identities and describes Jesus who has been present since he was really young. He states that Jesus is very organized and impatient, often controlling and prevents him from speaking when talking about past experiences. He also identifies other alters by name [place], El, Love, IZA, and Barney. The patient denies history of OCD or eating disorder, he reports a period of hypomania last February 2018. He states that he felt overly happy and was exhausted. He endorsed increased activity, decreased need for sleep, and spending money. He does not recall how long this lasted and does not recall if this has happened prior. The patient reports he and his significant other, Matthieu, have been living together since last June and that this is going well. He denies concerns with their relationship. He reports a previous boyfriend, Desean, and he are still friends and that this person is supportive as well. In reviewing the EMR, some of his information above is inconsistent with the information in the emergency room, for example there were notes that he reported he is homeless, but this is not the case. He denied medical history to myself, but there are reports of being treated for diabetes with insulin. The patient reported to myself that he does not know family psychiatric history because his family never talked about it and in the mental health evaluation, he said yes to family history of substance use, bipolar disorder, anxiety, and depression. Part B: Psychiatric treatment rendered: The patient was admitted to adult behavioral services unit on voluntary status. Code status was full. He was originally placed on 15-minute checks for his safety. We obtained an MMPI for diagnostic clarification. Please see report by Dr. Devan Carvajal for details. We requested hospitalist service for the patient's A1c of 12.2 and elevated glucose. The patient was started on insulin and reported ability to continue this at home due to his experience of being treated with insulin as a teenager. The patient was agreeable to start an SSRI for depression. We started fluoxetine at 20 mg. Patient education was done regarding diabetes management and correlation with moods. He reported improvement in mood and sleep. He reported desire to continue with current regimen and was appreciative of efforts. The patient was agreeable to wait to meet with a diabetes nurse educator, efforts made to find a gold marker were in vain. The patient met with nursing staff at time of discharge. He and his friend were encouraged to call with any questions or concerns after discharge. KAYLA ESCOBAR, SAMI [id number]/CPS #: [id number] DELICIA
== END 2018-12-18 16:02 | disposition home or self-care (01) | DRG 754 ==
LOC: ED 14:18 → BSU 12-15 11:14
PROVIDERS: ADMIT Psychiatry & Neurology Psychiatry; ATTEND Psychiatry & Neurology Psychiatry
PROC: GZHZZZZ Group Psychotherapy (ICD-10-PCS; principal; 2018-12-16)
DX: F32.9 Major depressive disorder, single episode, unspecified (principal); R45.851 Suicidal ideations; Z68.1 Body mass index [BMI] 19.9 or less, adult; Z62.810 Personal history of physical and sexual abuse in childhood; E10.65 Type 1 diabetes mellitus with hyperglycemia; F17.210 Nicotine dependence, cigarettes, uncomplicated; F44.81 Dissociative identity disorder; R63.4 Abnormal weight loss; Z91.5 Personal history of self-harm; Z83.3 Family history of diabetes mellitus; Z81.8 Family history of other mental and behavioral disorders; Z79.4 Long term (current) use of insulin; Z56.0 Unemployment, unspecified
CPT/HCPCS: 36415; 80053; 80061; 80307; 80320; 80329; 81003; 82947; 83036; 84443; 84681; 85025; 85660; 86341; 90853; 93005; 99222; 99232; 99238; 99284; A9270-GY; G0480

== ENCOUNTER 2019-02-01 14:07 | Emergency (ER) | payer OTHER ==
[2019-02-01] MEDS ORDERED: Ibuprofen TAB* 600 MG PO ONE (14:34)
--- OUTSIDE RECORDS SUMMARY | 2019-02-01 14:56 | XMS REPORT | Continuity of Care Document ---
:1995 External Reference #:[id number] Author Name Jessica Starr Care Team Providers Name Role Phone Arya Messer III, MD Primary Care Physician Unavailable Payers Date Identification Numbers Payment Provider Subscriber Policy Number: [id number] [employer] Group Number: [id number] [address] PayID: [id number] [place] [address] Expires: 2018 Policy Number: [id number] Medicaid Jesse Maier Group Name: 1 1 [address] PayID: [id number] [place] [address] Expires: 2018 Policy Number: [id number] Medicaid Jesse Maier Group Name: 1 1 [address] PayID: [id number] [place] [address] Advance Directives Description No Information Available Problems Description No Information Family History Date Family Member(s) Observation Comments Father Diabetes Type I Mother Diabetes Type I Social History Type Date Description Comments Sex Unknown Tobacco Use Start: Unknown Light tobacco smoker (10 or fewer cigarettes/day) Recreational Drug Use Regularly uses Marijuana Smoking Status Reviewed: 01/14/19 Light tobacco smoker (10 or fewer cigarettes/day) Allergies, Adverse Reactions, Alerts Description No Known Drug Allergies Medications Active Medications SIG Qnty Indications Ordering Provider Date Lantus Solostar 12 units at 3ml Arya Messer, 12/29/2018 bedtime M.D. 100Unit/ML Solution Pen-Inject Humalog Kwikpen 4 units with 5units Leonid Leonard MD 12/29/2018 meals plus 100Unit/ML Solution sliding scale Pen-Inject Acetaminophen ER 01/14/19 reports Unknown 650mg not taking 1 by Tablets ER mouth twice a day Fluoxetine HCL 1 by mouth every Unknown 20mg day Capsules Freestyle Lite Blood E11.65 Unknown Glucose Monitoring System Device History Medications No Active Medications Unknown 12/14/2018 - 12/21/2018 Immunizations Description No Information Available Vital Signs Date Vital Result Comment 01/14/2019 11:50am Height 67 inches 5'7" Weight 122.00 lb Heart Rate 71 /min BP Systolic Sitting 124 mmHg BP Diastolic Sitting 65 mmHg Body Temperature 97.0 F O2 % BldC Oximetry 97 % BMI (Body Mass Index) 19.1 kg/m2 12/14/2018 11:18am Height 67 inches 5'7" Weight 120.38 lb Heart Rate 88 /min BP Systolic 130 mmHg BP Diastolic 64 mmHg Body Temperature 97.7 F O2 % BldC Oximetry 96 % BMI (Body Mass Index) 18.9 kg/m2 Results Description No Information Available Procedures Description No Information Available Encounters Type Date Location Provider Dx Diagnosis Office Visit 12/18/2018 [facility] Mayra E11.65 Type 2 diabetes 11:34a Assoc,paul Bunn PA-C mellitus with Hospitalists hyperglycemia Z79.4 shelter (current) use of insulin F32.9 Major depressive disorder, single episode, unspecified R45.851 Suicidal ideations F17.200 Nicotine dependence, unspecified, uncomplicated Office Visit 12/17/2018 11:33a [facility] Ludin Venegas E11.65 Type 2 diabetes Assoc,paul GALLO mellitus with Hospitalists hyperglycemia Z79.4 shelter (current) use of insulin F17.200 Nicotine dependence, unspecified, uncomplicated F32.9 Major depressive disorder, single episode, unspecified R45.851 Suicidal ideations Office Visit 12/16/2018 [facility] Salome E11.65 Type 2 diabetes 11:33a Assoc,pc Brigitte Venegas, mellitus with Hospitalists WORKGROUP LEADER hyperglycemia F32.9 Major depressive disorder, single episode, unspecified R45.851 Suicidal ideations Office Visit 12/16/2018 [facility] and Leonid Leonard, E10.65 Type 1 diabetes 12:25p Endocrinology of mellitus with [facility] hyperglycemia Office Visit 12/14/2018 [facility] Internal Arya Mcguire R45.851 Suicidal ideations 11:00a Arturo Messer M.D. Plan of Treatment 01/14/2019 - Arya Messer M.D.F32.9 Major depressive disorder, single episode, unspecifiedComments:On drug Rx and following with psych now.E11.65 Type 2 diabetes mellitus with hyperglycemiaComments:A1c 12.2 with ER labs and pt back on Rx with insulin. Pt missed his endocrine recheck 12/29 and he was advised to reschedule as soon as he can; new referral entered. Begin recording home sugar readings and insulin doses and take in with his endocrine rechecks.Referral:Leonid Leonard MD, Endocrinology
--- OUTSIDE RECORDS SUMMARY | 2019-02-01 14:56 | XMS REPORT | Continuity of Care Document ---
:1995 External Reference #:[id number] Author Name Indira Flores Care Team Providers Name Role Phone Arya Messer III, MD Primary Care Physician Unavailable Payers Date Identification Numbers Payment Provider Subscriber Policy Number: [id number] [employer] Group Number: [id number] [address] PayID: [id number] [place] [address] Expires: 2018 Policy Number: [id number] Medicaid Jesse Maier Group Name: 1 1 [address] PayID: [id number] [place] [address] Expires: 2018 Policy Number: [id number] Medicaid Jesse Maier Group Name: 1 1 [address] PayID: [id number] [place] [address] Advance Directives Description No Information Available Problems Description No Information Family History Date Family Member(s) Observation Comments Father Diabetes Type I Mother Diabetes Type I Siblings 5 3 brothers and 2 sisters, Social History Type Date Description Comments Sex Unknown Marital Status Single Lives With partner Occupation Unemployed ETOH Use Occasionally consumes alcohol Tobacco Use Start: Unknown Light tobacco smoker 1-2 cigarettes a day (10 or fewer cigarettes/day) Recreational Drug Use Regularly uses once weekly Marijuana Smoking Status Reviewed: 01/26/19 Light tobacco smoker 1-2 cigarettes a day (10 or fewer cigarettes/day) Exercise Type/Frequency Exercises regularly walking/jogging, 3 days per week. Allergies, Adverse Reactions, Alerts Description No Known Drug Allergies Medications Active Medications SIG Qnty Indications Ordering Provider Date Basaglar Kwikpen inject 14 units 3ml Aniyah Cotton, 01/15/2019 s/c once daily M.D. 100Unit/ML Solution at bedtime or as Pen-Inject directed Humalog Kwikpen 4 units with 5units Leonid Leonard MD 12/29/2018 meals plus 100Unit/ML Solution sliding scale Pen-Inject (pt just using sliding scale ) Acetaminophen ER 01/14/19 reports Unknown 650mg not taking 1 by Tablets ER mouth twice a day Fluoxetine HCL 1 by mouth every Unknown 20mg day Capsules Freestyle Lite Blood E11.65 Unknown Glucose Monitoring System Device History Medications Lantus Solostar 12 units at 3ml Arya Messer, 12/29/2018 - bedtime M.D. 01/15/2019 100Unit/ML Solution Pen-Inject No Active Medications Unknown 12/14/2018 - 12/21/2018 Immunizations Description No Information Available Vital Signs Date Vital Result Comment 01/26/2019 12:21pm Height 67 inches 5'7" Weight 115.00 lb w/ shoes Heart Rate 112 /min BP Systolic Sitting 142 mmHg BP Diastolic Sitting 98 mmHg BMI (Body Mass Index) 18.0 kg/m2 01/14/2019 11:50am Height 67 inches 5'7" Weight [...] Date Location Provider Dx Diagnosis Office Visit 01/14/2019 [facility] Internal Arya Messer, F32.9 Major depressive 11:40a Medicine M.D. disorder, single episode, unspecified E11.65 Type 2 diabetes mellitus with hyperglycemia Office Visit 12/18/2018 [facility] Mayra E11.65 Type 2 diabetes 11:34a Assoc,paul Bunn PA-C mellitus with Hospitalists hyperglycemia Z79.4 skilled nursing (current) use of insulin F32.9 Major depressive disorder, single episode, unspecified R45.851 Suicidal ideations F17.200 Nicotine dependence, unspecified, uncomplicated Office Visit 12/17/2018 11:33a [facility] Ludin Venegas, E11.65 Type 2 diabetes Assoc,paul GALLO mellitus with Hospitalists hyperglycemia Z79.4 skilled nursing (current) use of insulin F17.200 Nicotine dependence, unspecified, uncomplicated F32.9 Major depressive disorder, single episode, unspecified R45.851 Suicidal ideations Office Visit 12/16/2018 [facility] Salome E11.65 Type 2 diabetes 11:33a Assoc,pc Brigitte Venegas, mellitus with Hospitalists DATA PROCESSING OPERATOR hyperglycemia F32.9 Major depressive disorder, single episode, unspecified R45.851 Suicidal ideations Office Visit 12/16/2018 [facility] and Leonid Leonard, E10.65 Type 1 diabetes 12:25p Endocrinology of mellitus with [facility] hyperglycemia Office Visit 12/14/2018 [facility] Internal Arya Mcguire R45.851 Suicidal ideations 11:00a Arturo Messer M.D. Plan of Treatment Future Appointment(s):03/05/2019 12:00 pm - Leonid Leonard MD at [facility] and Endocrinology of [facility]01/26/2019 - Leonid Leonard MDE11.65 Type 2 diabetes mellitus with hyperglycemiaFollow up:4-6 weeksInstructions:1. Start glipizide XL 5 mg daily in the morning. 2. Continue Humalog 4 units with meals, 6 units with large meals. 3. Increase Basaglar to 18 units at bedtime. 4. Continue to increase Basaglar by 2 units every 5-7 days until morning blood glucose is less than 150 mg/dL. 5. Return in 4-6 weeks for a follow-up visit.F32.9 Major depressive disorder, single episode, hitpgrrcgojY66.4 long term care pharmacist (current) use of insulin
[2019-02-01 16:07] VITALS: BP 135/64
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
== END 2019-02-01 16:04 | disposition home or self-care (01) ==
LOC: ED 14:07
DX: M54.9 Dorsalgia, unspecified (principal); E11.9 Type 2 diabetes mellitus without complications; F17.210 Nicotine dependence, cigarettes, uncomplicated; V44.6XXA Car passenger injured in collision with heavy transport vehicle or bus in traffic accident, initial encounter; Y92.9 Unspecified place or not applicable
CPT/HCPCS: 36415; 72110; 86703; 99282; A9270-GY

== ENCOUNTER 2020-06-08 00:51 | Inpatient (IN) ==
[2020-06-08] MEDS ORDERED: Haloperidol 5 mg/ml SDV IV/IM 5 MG/ML AMP IM ONE (00:53)
[2020-06-08] MEDS ORDERED: diPHENhydraMINE IV 50 MG/ML 1 ml VIAL (BENADRYL) IM ONE (00:53)
[2020-06-08] MEDS ORDERED: LORazepam 2 mg VIAL 1 ml IM ONE (00:53)
[2020-06-08] MEDS ORDERED: LORazepam 2 mg VIAL 1 ml ONE (00:58)
[2020-06-08 01:47] LABS: ABS Eosinophils 0.1 10^3/ul (0-0.6); ABS Monocytes 0.6 10^3/ul (0-0.8); Eosinophil % 2.3 %; Hematocrit 42 % (42-52); Hemoglobin 14.6 g/dL (14.0-18.0); Lymphocyte % 42.4 %; Mean Corpuscular HGB Conc 35 g/dL (31-36); Mean Corpuscular Hemoglobin 31 pg (27-31); Mean Corpuscular Volume 87 fL (80-94); Nucleated Red Blood Cells % 0.1; Platelet Count 332 10^3/uL (150-450); Red Blood Count 4.76 10^6 /uL (4.18-5.48); Red Cell Distribution Width 13 % (10-15); White Blood Count 4.8 10^3/uL (3.5-10.8)
[2020-06-08 01:58] LABS: ALT 18 U/L (7-52); Albumin/Globulin Ratio 1.3 (1-3); Alkaline Phosphatase 83 U/L (34-104); BUN/Creatinine Ratio 17.7 (8-20); Blood Urea Nitrogen 17 mg/dL (6-24); CO2 Carbon Dioxide 24 mmol/L (22-32); Calcium 9.3 mg/dL (8.6-10.3); Chloride 101 mmol/L (101-111); EGFR African American 115.5 (>60); EGFR Non-African American 95.4 (>60); Glucose 385 mg/dL (70-100); Sodium 134 mmol/L (135-145)
[2020-06-08 02:24] LABS: Anion Gap 9 mmol/L (2-11); Potassium 4.2 mmol/L (3.5-5.0)
[2020-06-08 02:27] LABS: Acetaminophen < 15 mcg/mL; Alcohol, S < 10 mg/dL (<10); Salicylate < 2.50 mg/dL (<30)
[2020-06-08 02:28] LABS: AST 23 U/L (13-39)
[2020-06-08 02:41] LABS: TSH Ultra Thyroid Stim Horm 1.02 mcIU/mL (0.34-5.60)
[2020-06-08 03:22] LABS: Urine Appearance Clear; Urine Bilirubin Negative (Negative); Urine Blood Negative (Negative); Urine Color Straw; Urine Glucose 3+(>=500 mg/dL) (Negative); Urine Ketones Negative (Negative); Urine Nitrite Negative (Negative); Urine Protein Negative (Negative); Urine Urobilinogen Negative (Negative)
[2020-06-08 03:54] LABS: Urine Benzodiazepine Screen None Detected (None Detect); Urine Cannabinoids Screen None Detected (None Detect); Urine Opiates Screen None Detected (None Detect)
[2020-06-08] MEDS ORDERED: Al Hydrox/Mg Hydrox/Simet LIQ 30 ML UDC PO PRN (17:51)
[2020-06-08] MEDS ORDERED: Dextrose 50% Syringe 50 ml 25 GM/50 ML SYRINGE IV PUSH PRN (17:52)
[2020-06-08] MEDS: Insulin GLARGINE 100 un/ml 10 ml VIAL SUBCUT SCH (21:36)
[2020-06-09] MEDS: Vitamin THERAPEUTIC TAB PO SCH (12:10)
[2020-06-09] MEDS: Nicotine PATCH 14 MG/24 HR PATCH TRANSDERM SCH (12:10)
[2020-06-09 21:13] LABS: Urine Benzodiazepine Screen None Detected (None Detect); Urine Buprenorphine Screen None Detected (None Detect); Urine Cannabinoids Screen None Detected (None Detect); Urine Fentanyl Screen None Detected (None Detect); Urine Hydrocodone Screen None Detected (None Detect); Urine Opiates Screen None Detected (None Detect)
[2020-06-09] MEDS: Insulin GLARGINE 100 un/ml 10 ml VIAL SUBCUT SCH (23:06)
[2020-06-10 08:17] LABS: HDL Cholesterol 55.4 mg/dL
[2020-06-10] MEDS: Nicotine PATCH 14 MG/24 HR PATCH TRANSDERM SCH (09:33)
[2020-06-10] MEDS: Vitamin THERAPEUTIC TAB PO SCH (09:33)
[2020-06-10] MEDS: Nicotine GUM 2MG FRUIT FLAVOR PO PRN ×2 (13:23→19:17)
[2020-06-10] MEDS ORDERED: Influenza VAC *QUAD* 2020-21* 0.5 ML SYRINGE IM ONE (15:00)
[2020-06-10] MEDS: Insulin GLARGINE 100 un/ml 10 ml VIAL SUBCUT SCH (20:20)
[2020-06-11] MEDS: Vitamin THERAPEUTIC TAB PO SCH (09:35)
[2020-06-11] MEDS: Nicotine PATCH 14 MG/24 HR PATCH TRANSDERM SCH (09:35)
[2020-06-11] MEDS: Nicotine GUM 2MG FRUIT FLAVOR PO PRN (14:15)
[2020-06-11] MEDS: Insulin GLARGINE 100 un/ml 10 ml VIAL SUBCUT SCH (21:22)
[2020-06-12] MEDS: Nicotine PATCH 14 MG/24 HR PATCH TRANSDERM SCH (08:00)
[2020-06-12] MEDS: Vitamin THERAPEUTIC TAB PO SCH (08:00)
[2020-06-12] MEDS: Nicotine GUM 2MG FRUIT FLAVOR PO PRN ×2 (10:30→14:52)
[2020-06-12] MEDS: Insulin GLARGINE 100 un/ml 10 ml VIAL SUBCUT SCH (21:52)
[2020-06-13] MEDS: Nicotine PATCH 14 MG/24 HR PATCH TRANSDERM SCH (08:46)
[2020-06-13] MEDS: Vitamin THERAPEUTIC TAB PO SCH (08:46)
[2020-06-13] MEDS: Nicotine GUM 2MG FRUIT FLAVOR PO PRN (13:16)
[2020-06-13] MEDS: Insulin GLARGINE 100 un/ml 10 ml VIAL SUBCUT SCH (20:32)
[2020-06-14] MEDS: Vitamin THERAPEUTIC TAB PO SCH (08:16)
[2020-06-14] MEDS: Nicotine PATCH 14 MG/24 HR PATCH TRANSDERM SCH (08:16)
[2020-06-14] MEDS: Nicotine GUM 2MG FRUIT FLAVOR PO PRN ×2 (10:08→14:53)
[2020-06-14] MEDS: Insulin GLARGINE 100 un/ml 10 ml VIAL SUBCUT SCH (22:22)
[2020-06-15] MEDS: Nicotine PATCH 14 MG/24 HR PATCH TRANSDERM SCH (08:14)
[2020-06-15] MEDS: Vitamin THERAPEUTIC TAB PO SCH (08:14)
[2020-06-15 10:02] VITALS: BP 183/73
== END 2020-06-15 17:00 | disposition home or self-care (01) | DRG 751 ==
LOC: ED 00:51 → BSU 17:57
PROVIDERS: ADMIT Psychiatry & Neurology Psychiatry; ATTEND Psychiatry & Neurology Psychiatry

== ENCOUNTER 2020-11-21 19:47 | Inpatient (IN) ==
[2020-11-21] MEDS ORDERED: LORazepam 2 mg VIAL 1 ml IM ONE (19:54)
[2020-11-21] MEDS ORDERED: Haloperidol 5 mg/ml SDV IV/IM 5 MG/ML AMP IM ONE (19:54)
[2020-11-21] MEDS ORDERED: diPHENhydraMINE IV 50 MG/ML 1 ml VIAL (BENADRYL) IM ONE (19:54)
[2020-11-21] MEDS ORDERED: LORazepam 2 mg VIAL 1 ml ONE (19:55)
[2020-11-21 21:49] LABS: ABS Eosinophils 0.2 10^3/ul (0-0.6); ABS Lymphocytes 2.5 10^3/ul (1.0-4.8); ABS Monocytes 0.7 10^3/ul (0-0.8); ABS Neutrophils 5.8 10^3/ul (1.5-7.7); Eosinophil % 2.3 %; Hematocrit 46 % (42-52); Hemoglobin 15.3 g/dL (14.0-18.0); Lymphocyte % 27.2 %; Mean Corpuscular HGB Conc 33 g/dL (31-36); Mean Corpuscular Hemoglobin 30 pg (27-31); Mean Corpuscular Volume 89 fL (80-94); Platelet Count 305 10^3/uL (150-450); Red Blood Count 5.15 10^6 /uL (4.18-5.48); Red Cell Distribution Width 12 % (10-15); White Blood Count 9.2 10^3/uL (3.5-10.8)
[2020-11-21 21:59] LABS: BUN/Creatinine Ratio 21.9 (8-20); Blood Urea Nitrogen 25 mg/dL (6-24); CO2 Carbon Dioxide 25 mmol/L (22-32); Chloride 96 mmol/L (101-111); EGFR Non-African American 78.3 (>60); Glucose 386 mg/dL (70-100); Sodium 129 mmol/L (135-145)
[2020-11-21 22:00] LABS: ALT 20 U/L (7-52); Albumin 4.3 g/dL (3.2-5.2); Albumin/Globulin Ratio 1.3 (1-3); Alkaline Phosphatase 77 U/L (34-104); Calcium 9.4 mg/dL (8.6-10.3); EGFR African American 94.7 (>60); Globulin 3.4 g/dL (2-4); Total Protein 7.7 g/dL (6.4-8.9)
[2020-11-21 22:35] LABS: Acetaminophen < 15 mcg/mL; Alcohol, S < 10 mg/dL (<10); Salicylate < 2.50 mg/dL (<30)
[2020-11-21 22:49] LABS: TSH Ultra Thyroid Stim Horm 2.62 mcIU/mL (0.34-5.60)
[2020-11-21 23:16] LABS: Anion Gap 8 mmol/L (2-11)
[2020-11-21 23:58] LABS: Urine Appearance Clear; Urine Bilirubin Negative (Negative); Urine Blood Negative (Negative); Urine Color Yellow; Urine Glucose 3+(>=500 mg/dL) (Negative); Urine Ketones 1+ (Negative); Urine Nitrite Negative (Negative); Urine Protein Negative (Negative); Urine Specific Gravity 1.032 (1.010-1.030); Urine Urobilinogen Negative (Negative)
[2020-11-22 00:19] LABS: Urine Benzodiazepine Screen None Detected (None Detect); Urine Cannabinoids Screen None Detected (None Detect); Urine Opiates Screen None Detected (None Detect)
[2020-11-22 00:39] LABS: Potassium Redraw 5.7 mmol/L (3.5-5.0)
[2020-11-22] MEDS ORDERED: NS 0.9% 1000 ml BAG 1,000 ML IV ONE (04:26)
[2020-11-22] MEDS ORDERED: diPHENhydraMINE IV 50 MG/ML 1 ml VIAL (BENADRYL) ONE (07:08)
[2020-11-22] MEDS ORDERED: LORazepam 2 mg VIAL 1 ml ONE ×2 (07:08→15:10)
[2020-11-22] MEDS ORDERED: Haloperidol 5 mg/ml SDV IV/IM 5 MG/ML AMP ONE ×2 (07:08→15:10)
[2020-11-22] MEDS ORDERED: Lorazepam PYXIS KEY ONE ×2 (07:08→15:10)
[2020-11-22 07:29] LABS: Albumin 3.5 g/dL (3.2-5.2); Albumin/Globulin Ratio 1.3 (1-3); BUN/Creatinine Ratio 26.7 (8-20); Calcium 8.5 mg/dL (8.6-10.3); EGFR African American 153.5 (>60); EGFR Non-African American 126.9 (>60); Globulin 2.7 g/dL (2-4); Total Bilirubin 0.4 mg/dL (0.2-1.0); Total Protein 6.2 g/dL (6.4-8.9)
[2020-11-22] MEDS ORDERED: Al Hydrox/Mg Hydrox/Simet LIQ 30 ML UDC PO PRN (08:49)
[2020-11-22] MEDS ORDERED: Nicotine PATCH 14 MG/24 HR PATCH TRANSDERM SCH (09:00)
[2020-11-22] MEDS ORDERED: Ketamine HCL 50 mg/ml 10 ml VIAL (500 MG) IM ONE (09:05)
[2020-11-22] MEDS ORDERED: Dextrose 50% Syringe 50 ml 25 GM/50 ML SYRINGE IV PUSH PRN (11:31)
[2020-11-22] MEDS: Insulin GLARGINE 100 un/ml 10 ml VIAL SUBCUT SCH (11:56)
[2020-11-22] MEDS: Vitamin THERAPEUTIC TAB PO SCH (11:57)
[2020-11-22] MEDS ORDERED: Nicotine GUM 2MG FRUIT FLAVOR PO ONE (15:01)
[2020-11-22] MEDS ORDERED: Nicotine GUM 4MG FRUIT FLAVOR PO PRN (15:30)
[2020-11-23] MEDS: Nicotine PATCH 21 MG/24 HR PATCH TRANSDERM SCH (09:02)
[2020-11-23] MEDS: Vitamin THERAPEUTIC TAB PO SCH (09:02)
[2020-11-23] MEDS: Insulin GLARGINE 100 un/ml 10 ml VIAL SUBCUT SCH (09:02)
[2020-11-23] MEDS: Nicotine GUM 2MG FRUIT FLAVOR PO PRN ×2 (16:03→19:15)
[2020-11-24] MEDS: Nicotine GUM 2MG FRUIT FLAVOR PO PRN ×2 (06:17→18:58)
[2020-11-24] MEDS: Nicotine PATCH 21 MG/24 HR PATCH TRANSDERM SCH (06:50)
[2020-11-24] MEDS: Insulin GLARGINE 100 un/ml 10 ml VIAL SUBCUT SCH (07:58)
[2020-11-24] MEDS: Vitamin THERAPEUTIC TAB PO SCH (08:01)
[2020-11-24 08:21] LABS: HDL Cholesterol 45.7 mg/dL
[2020-11-25] MEDS: Nicotine GUM 2MG FRUIT FLAVOR PO PRN ×2 (07:20→10:42)
[2020-11-25] MEDS: Insulin GLARGINE 100 un/ml 10 ml VIAL SUBCUT SCH (07:45)
[2020-11-25] MEDS: Nicotine PATCH 21 MG/24 HR PATCH TRANSDERM SCH (07:47)
[2020-11-25] MEDS: Vitamin THERAPEUTIC TAB PO SCH (07:49)
[2020-11-26] MEDS: Insulin GLARGINE 100 un/ml 10 ml VIAL SUBCUT SCH (08:49)
[2020-11-26] MEDS: Nicotine PATCH 21 MG/24 HR PATCH TRANSDERM SCH (08:51)
[2020-11-26] MEDS: Vitamin THERAPEUTIC TAB PO SCH (08:54)
[2020-11-27] MEDS: Nicotine PATCH 21 MG/24 HR PATCH TRANSDERM SCH (08:43)
[2020-11-27] MEDS: Insulin GLARGINE 100 un/ml 10 ml VIAL SUBCUT SCH (08:43)
[2020-11-27] MEDS: Vitamin THERAPEUTIC TAB PO SCH (08:44)
[2020-11-27] MEDS ORDERED: Dextrose 50% Syringe 50 ml 25 GM/50 ML SYRINGE IV PUSH PRN (10:44)
[2020-11-28] MEDS: Nicotine PATCH 21 MG/24 HR PATCH TRANSDERM SCH (11:42)
[2020-11-28] MEDS: Vitamin THERAPEUTIC TAB PO SCH (11:42)
[2020-11-28] MEDS: Insulin GLARGINE 100 un/ml 10 ml VIAL SUBCUT SCH (11:42)
[2020-11-29] MEDS: Vitamin THERAPEUTIC TAB PO SCH (09:41)
[2020-11-29] MEDS: Nicotine PATCH 21 MG/24 HR PATCH TRANSDERM SCH (09:41)
[2020-11-29] MEDS: Insulin GLARGINE 100 un/ml 10 ml VIAL SUBCUT SCH ×2 (10:11→13:27)
[2020-11-30] MEDS: Nicotine GUM 2MG FRUIT FLAVOR PO PRN ×3 (02:36→09:29)
[2020-11-30] MEDS: Nicotine PATCH 21 MG/24 HR PATCH TRANSDERM SCH (09:29)
[2020-11-30] MEDS: Vitamin THERAPEUTIC TAB PO SCH (09:29)
[2020-11-30] MEDS: Insulin GLARGINE 100 un/ml 10 ml VIAL SUBCUT SCH (10:46)
[2020-12-01] MEDS: Vitamin THERAPEUTIC TAB PO SCH (08:57)
[2020-12-01] MEDS: Insulin GLARGINE 100 un/ml 10 ml VIAL SUBCUT SCH (08:57)
[2020-12-01] MEDS: Nicotine PATCH 21 MG/24 HR PATCH TRANSDERM SCH (08:58)
[2020-12-02] MEDS: Nicotine PATCH 21 MG/24 HR PATCH TRANSDERM SCH (08:07)
[2020-12-02] MEDS: Vitamin THERAPEUTIC TAB PO SCH (08:08)
[2020-12-02] MEDS: Insulin GLARGINE 100 un/ml 10 ml VIAL SUBCUT SCH (08:11)
[2020-12-02] MEDS: Nicotine GUM 2MG FRUIT FLAVOR PO PRN (19:08)
[2020-12-03] MEDS: Nicotine PATCH 21 MG/24 HR PATCH TRANSDERM SCH (07:32)
[2020-12-03] MEDS: Vitamin THERAPEUTIC TAB PO SCH (07:33)
[2020-12-03] MEDS: Insulin GLARGINE 100 un/ml 10 ml VIAL SUBCUT SCH (07:37)
[2020-12-04 08:44] LABS: BUN/Creatinine Ratio 16.8 (8-20); Calcium 9.9 mg/dL (8.6-10.3); EGFR African American 116.9 (>60); EGFR Non-African American 96.6 (>60); Potassium 4.2 mmol/L (3.5-5.0)
[2020-12-04] MEDS: Insulin GLARGINE 100 un/ml 10 ml VIAL SUBCUT SCH (08:53)
[2020-12-04] MEDS: Nicotine PATCH 21 MG/24 HR PATCH TRANSDERM SCH (08:57)
[2020-12-04 08:58] LABS: Lithium 0.45 mmol/L (0.6-1.2)
[2020-12-04] MEDS: Vitamin THERAPEUTIC TAB PO SCH (08:59)
[2020-12-05 08:54] LABS: BUN/Creatinine Ratio 14.3 (8-20); Calcium 9.4 mg/dL (8.6-10.3); EGFR African American 122.8 (>60); EGFR Non-African American 101.5 (>60); Potassium 4.1 mmol/L (3.5-5.0)
[2020-12-05] MEDS: Insulin GLARGINE 100 un/ml 10 ml VIAL SUBCUT SCH (09:30)
[2020-12-05] MEDS: Nicotine PATCH 21 MG/24 HR PATCH TRANSDERM SCH (09:32)
[2020-12-05] MEDS: Vitamin THERAPEUTIC TAB PO SCH (09:33)
[2020-12-05] MEDS: Nicotine GUM 2MG FRUIT FLAVOR PO PRN (21:53)
[2020-12-06] MEDS: Insulin GLARGINE 100 un/ml 10 ml VIAL SUBCUT SCH (09:46)
[2020-12-06] MEDS: Vitamin THERAPEUTIC TAB PO SCH (09:48)
[2020-12-06] MEDS: Nicotine PATCH 21 MG/24 HR PATCH TRANSDERM SCH (09:49)
[2020-12-07] MEDS: Nicotine GUM 2MG FRUIT FLAVOR PO PRN ×2 (06:28→15:20)
[2020-12-07 08:22] LABS: BUN/Creatinine Ratio 17.6 (8-20); Calcium 9.6 mg/dL (8.6-10.3); EGFR African American 132.9 (>60); EGFR Non-African American 109.8 (>60); Potassium 4.4 mmol/L (3.5-5.0)
[2020-12-07 08:23] LABS: Lithium 0.76 mmol/L (0.6-1.2)
[2020-12-07] MEDS: Insulin GLARGINE 100 un/ml 10 ml VIAL SUBCUT SCH (09:39)
[2020-12-07] MEDS: Nicotine PATCH 21 MG/24 HR PATCH TRANSDERM SCH (09:40)
[2020-12-07] MEDS: Vitamin THERAPEUTIC TAB PO SCH (09:40)
[2020-12-08] MEDS: Vitamin THERAPEUTIC TAB PO SCH (09:08)
[2020-12-08] MEDS: Insulin GLARGINE 100 un/ml 10 ml VIAL SUBCUT SCH (10:53)
[2020-12-08] MEDS: Nicotine PATCH 21 MG/24 HR PATCH TRANSDERM SCH (10:54)
[2020-12-09] MEDS: Insulin GLARGINE 100 un/ml 10 ml VIAL SUBCUT SCH (08:15)
[2020-12-09] MEDS: Nicotine PATCH 21 MG/24 HR PATCH TRANSDERM SCH (08:15)
[2020-12-09] MEDS: Vitamin THERAPEUTIC TAB PO SCH (08:36)
[2020-12-10] MEDS: Nicotine PATCH 21 MG/24 HR PATCH TRANSDERM SCH (08:43)
[2020-12-10] MEDS: Insulin GLARGINE 100 un/ml 10 ml VIAL SUBCUT SCH (08:43)
[2020-12-10] MEDS: Vitamin THERAPEUTIC TAB PO SCH (08:44)
[2020-12-11] MEDS: Nicotine PATCH 21 MG/24 HR PATCH TRANSDERM SCH (10:13)
[2020-12-11] MEDS: Insulin GLARGINE 100 un/ml 10 ml VIAL SUBCUT SCH (10:16)
[2020-12-11] MEDS: Vitamin THERAPEUTIC TAB PO SCH (10:18)
[2020-12-12] MEDS: Nicotine PATCH 21 MG/24 HR PATCH TRANSDERM SCH (09:38)
[2020-12-12] MEDS: Vitamin THERAPEUTIC TAB PO SCH (09:38)
[2020-12-12] MEDS: Insulin GLARGINE 100 un/ml 10 ml VIAL SUBCUT SCH (10:36)
[2020-12-13] MEDS: Insulin GLARGINE 100 un/ml 10 ml VIAL SUBCUT SCH (08:34)
[2020-12-13] MEDS: Vitamin THERAPEUTIC TAB PO SCH (08:39)
[2020-12-13] MEDS: Nicotine PATCH 21 MG/24 HR PATCH TRANSDERM SCH (08:41)
[2020-12-14] MEDS: Vitamin THERAPEUTIC TAB PO SCH (08:27)
[2020-12-14] MEDS: Nicotine PATCH 21 MG/24 HR PATCH TRANSDERM SCH (08:28)
[2020-12-14] MEDS: Insulin GLARGINE 100 un/ml 10 ml VIAL SUBCUT SCH (08:29)
[2020-12-14 08:36] VITALS: BP 135/70
== END 2020-12-14 09:40 | DRG 751 ==
LOC: ED 19:47 → BSU 11-22 08:49
PROVIDERS: ADMIT Psychiatry & Neurology Psychiatry; ATTEND Psychiatry & Neurology Psychiatry